=== PATIENT | male | born 1960 ===

== ENCOUNTER 2024-08-04 14:04 | Outpatient (CLI) | payer SELFPAY ==
--- NOTE | 2024-08-04 14:13 | CT_ITS ---
WS: [id number] CT CALCIUM SCORE REASON FOR VISIT: DYSPNEA; Coronary artery disease risk assessment COMPARISON: None TECHNIQUE: Noncontrast coronary CT in combination with quantitative analysis performed on a separate workstation were used to determine CACS (Agatston score) TOTAL EXAM DOSE: 121.98 mGy.cm ECG GATING: Prospective SCAN RANGE: Pulmonary artery bifurcation to Inferior aspect of heart COMPLICATIONS: None FINDINGS: Technical Quality/Examination Quality: Good Limitaiton: None OVERALL SCORES Total calcium score: 625 Total volume score: 624 mm3 Percentile: 75th-90th% ARTERY SCORES Left main coronary artery: 1 Left anterior descending artery: 197 Left circumflex artery: 287 Right coronary artery: 140 OTHER FINDINGS: Mediastinum: Normal. Thoracic aorta: Normal. Lungs: Subpleural nodules LEFT lower lobe with the largest measuring 10 mm. Additional small nodule L EFT lower lobe measuring 5 mm. Upper Abdomen: Normal. MINIMAL: 1-10 MILD: 11-100 MODERATE: 101-400 SEVERE:>400 CT/CT heart w calcium score 99299 IMPRESSION: Total calcium score 625 compatible with moderate to severe coronar y artery disease Pulmonary nodules partially visualized LEFT lower lobe with largest measuring [address] follow-up. GRADING OF CORONARY ARTERY DISEASE (BASED ON TOTAL CALCIUM SCORE) NO EVIDENCE OF CAD: 0 calcium score
== END 2024-08-04 14:05 | disposition home or self-care (01) ==
LOC: RAD 14:05
PROVIDERS: Family Provider Family Medicine; PCP Family Medicine; Visit Provider Family Medicine
DX: R91.8 Other nonspecific abnormal finding of lung field (principal); R06.09 Other forms of dyspnea; Z82.49 Family history of ischemic heart disease and other diseases of the circulatory system; I25.10 Atherosclerotic heart disease of native coronary artery without angina pectoris
CPT/HCPCS: 75571